=== PATIENT | female | born 1995 | race African-American/Black ===

== ENCOUNTER 2017-01-12 11:12 | Emergency (ER) | payer SELFPAY ==
[~2017-01-12] VITALS: Ht 170.2 cm; Wt 83.2 kg
[2017-01-12 11:14] VITALS: BP 130/87; PULSE 94; RESP 16; TEMP 97.7; O2SAT 97
--- NOTE | 2017-01-12 11:42 | PD ---
HPI Chief Complaint: Nosebleed Time Seen by Provider: 11:39 Travel History International Travel<30 days: No Contact w/Intl Traveler<30days: No Traveled to known affect area: No History of Present Illness HPI The patient is a 21-year-old [place] female who presents to the emergency department for nose bleed. The patient states she was walking down the street earlier today when she developed a nose bleed. The nose was bleeding out of the left naris, as well as swallowing blood. The patient states she held pressure intermittently, but was unable to stop the nosebleed. She denies any history of recurrent epistaxis in the past. The patient denies any trauma including direct trauma to the nose, picking, or blowing of the nose prior to the bleeding. She denies any history of coagulopathies or blood dyscrasias, denies heavy menstrual cycles. The symptoms are mild to moderate, there are no alleviating factors or exacerbating factors. PFSH Past Medical History Medical History: Denies Significant Hx Hx Anticoagulant Therapy: No Diabetes: No Influenza Vaccination: No ?: Not LMP: 3 weeks ago Past Surgical History Surgical History: No Previous Surgery Social History Alcohol Use: Yes ([facility]) Tobacco Use: No Substance Use: Yes ([facility]) Allergies-Medications (Allergen,Severity, Reaction): Coded Allergies: No Known Allergies (Unverified , 01/12/17) Reported Meds & Prescriptions Reported Meds & Active Scripts Active No Active Prescriptions or Reported Medications Review of Systems Except as stated in HPI: all other systems reviewed are Neg General / Constitutional: No: Fever HENT: Positive: Nosebleed, No: Headaches, Lightheadedness Gastrointestinal: No: Nausea, Vomiting Musculoskeletal: No: Weakness Neurologic: No: Dizziness Hematologic/Lymphatic: No: Easy Bruising Physical Exam Narrative GENERAL: Awake, alert, pleasant 21-year-old female who appears her stated age and is in no acute respiratory distress. SKIN: Focused skin assessment warm/dry. HEAD: Atraumatic. Normocephalic. EYES: Pupils equal and round. No scleral icterus. No injection or drainage. ENT: The right naris unremarkable. The left nares has active bleeding. Oropharynx reveals blood in the posterior oropharynx with a few clots. NECK: Trachea midline. No JVD. MUSCULOSKELETAL: No obvious deformities. No clubbing. No cyanosis. No edema. NEUROLOGICAL: Awake and alert. No obvious cranial nerve deficits. Motor grossly within normal limits. Normal speech. PSYCHIATRIC: Appropriate mood and affect; insight and judgment normal. Data Data Last Documented VS Vital Signs Date Time Temp Pulse Resp B/P Pulse Ox O2 Delivery O2 Flow Rate FiO2 01/12/17 11:14 97.7 94 16 130/87 97 MDM Medical Decision Making Medical Screen Exam Complete: Yes Emergency Medical Condition: Yes Medical Record Reviewed: Yes Differential Diagnosis Differential diagnosis includes epistaxis, anterior nosebleed, posterior nosebleed, perforated septum, coagulopathy, blood dyscrasia. Narrative Course The patient was advised to blow her nose and then had direct pressure applied using 2 sugar tong splints that were taped together. The patient was also provided ice water to gargle and remove blood in the posterior oropharynx. The patient was then monitored in the emergency department. The patient's nosebleed had stopped at 11:50 PM. The sugar tong splint was removed from the nose. The patient was monitored until 12:15 PM. There is no further bleeding. The patient is stable for discharge. Diagnosis Primary Impression: Epistaxis Additional Instructions: Avoid picking or blowing the nose for 24 hours. If bleeding returns, hold pressure for 30 minutes, the bleeding does not resolve, return to the emergency department. Follow-up with your primary physician. Med/Other Pt SpecificInfo: No Change to Meds Scripts No Active Prescriptions or Reported Meds Disposition: 01 DISCHARGE HOME Condition: Stable Mika Lynne MD Jan 12, 2017 11:42
== END 2017-01-12 12:20 | disposition home or self-care (01) ==
LOC: PHED 11:12
DX: R04.0 Epistaxis (principal)
CPT/HCPCS: 99283